=== PATIENT | female | born 1990 | race Caucasian/White ===

== ENCOUNTER 2019-11-15 05:48 | Day surgery (SDC) | payer BC ==
[2019-11-14 12:52] VITALS: BMI 29.2
--- NOTE | 2019-11-14 13:20 | HP ---
HISTORY OF PRESENT ILLNESS: Ms. Sully Russell is a 29-year-old, G0, P0, who presented to clinic with severe abnormal uterine bleeding, dysmenorrhea, and anemia. The patient underwent an ultrasound, which demonstrated an intracavitary fibroid measuring about 2.5 x 2 cm. The patient had undergone medical management without success and she is currently on Depo-Provera injections that have helped decrease the flow slightly. She is also on Lysteda and taking iron. The patient was counseled on her options for treatment and desired surgical management with hysteroscopic myomectomy as she has failed medical management. PAST MEDICAL HISTORY: Anemia. PAST SURGICAL HISTORY: 1. Left knee arthroscopy. 2. Right shoulder surgery. 3. Tonsillectomy. 4. Extraction of wisdom teeth. GYNECOLOGY HISTORY: She is G0. OB HISTORY AND GYNECOLOGY HISTORY: Pap smear is normal in 2018. No history of STDs. Currently on Depo-Provera. SOCIAL HISTORY: Denies any tobacco, alcohol, or drug use. OBJECTIVE: VITAL SIGNS: Stable. GENERAL: No acute distress. ABDOMEN: Soft, nontender to palpation. : Previous exam normal external genitalia. Normal-appearing vaginal cervical epithelium. Uterus nontender with slight enlargement. No adnexal masses or tenderness noted. LABORATORY DATA: Hemoglobin in September in 2019 was 8.3 and hematocrit was 26.4. Her repeat labs are pending. Transvaginal ultrasound, the uterus was 9.67 cm in length and 6.21 cm in width. The right and left ovary were normal. There is a 2.64 x 1.96 cm intracavitary fibroid. ASSESSMENT AND PLAN: Abnormal uterine bleeding with intracavitary fibroid and resulting anemia. -The patient had been counseled on treatment options and elected for surgical management with plans for hysteroscopic myomectomy. The patient understands that the procedure may require more than one attempt to completely remove the fibroid. She also understands the other risks, benefits, and alternatives, including the rare risk of requiring hysterectomy due to bleeding from the procedure. Job ID: [id number] [facility]
[2019-11-14 13:45] LABS: Hemoglobin 12.1 g/dL (12.0-16.0); Mean Corpuscular HGB CONC 32.2 g/dL (32.0-36.0); Mean Corpuscular Hemoglobin 29.4 pg (27.0-31.0); Mean Corpuscular Volume 91.2 fL (78.0-98.0); Mean Platelet Volume 9.4 fL (7.4-10.4); Platelet Count 263 thou/uL (130-400); RBC Distribution Width 20.4 % (11.5-14.5); Red Blood Cell (RBC) Count 4.13 mill/uL (4.20-5.40); White Blood Cell (WBC) Count 5.2 thou/uL (4.8-10.8)
[2019-11-14 14:01] LABS: BHCG - Serum Negative (NEGATIVE); Pregs Control Background? CLEAR/WHITE (CLR/WHITE); Pregs Control Bar Appear? YES (CONTROL BAR)
[2019-11-15] MEDS ORDERED: Fentanyl 100 MCG/2 ML VIAL ONE ×2 (06:37→11:54)
[2019-11-15] MEDS ORDERED: Tranexamic Acid 1,000 MG/10 ML VIAL ONE (07:04)
[2019-11-15] MEDS ORDERED: Acetaminophen 500 MG TAB ONE (07:04)
[2019-11-15] MEDS ORDERED: Famotidine/PF 20 mg/2ml Vial ONE (07:04)
[2019-11-15] MEDS ORDERED: Gabapentin 300 MG CAP ONE (07:04)
[2019-11-15] MEDS ORDERED: Sodium Chloride 0.9% 100 ML ONE (07:06)
[2019-11-15] MEDS ORDERED: Methylergonovine 0.2 MG/ML VIAL ONE (08:57)
[2019-11-15] MEDS ORDERED: Morphine 4 MG/ML VIAL ONE (10:18)
[2019-11-15] MEDS ORDERED: Morphine 2 MG/ML SYRINGE ONE (11:23)
[2019-11-15] MEDS ORDERED: Ondansetron PF 4 MG/2 ML Vial ONE (13:29)
[2019-11-15] MEDS ORDERED: PROPOFOL 200 MG/20 ML VIAL ONE (13:29)
[2019-11-15] MEDS ORDERED: Dexamethasone 20 MG/5 ML VIAL ONE (13:29)
[2019-11-15] MEDS ORDERED: Lidocaine 1% PF 5 ML VIAL ONE (13:29)
[2019-11-15] MEDS ORDERED: HYDROcodone/Acetaminophen 5/325 mg Tablet ONE (15:28)
--- NOTE | 2019-11-16 11:03 | OP ---
DATE OF PROCEDURE: 11/15/2019 PREOPERATIVE DIAGNOSES: 1. Abnormal uterine bleeding with a type 0 to 1 intracavitary fibroid. 2. Anemia. POSTOPERATIVE DIAGNOSES: 1. Abnormal uterine bleeding with a type 0 to 1 intracavitary fibroid. 2. Anemia. PROCEDURES PERFORMED: 1. Hysteroscopic partial myomectomy of the intracavitary fibroid using a TruClear hysteroscope device and incisor. 2. Insertion of an intrauterine Horne catheter balloon for uterine tamponade post procedure. SURGEON: Jayleen Parker DO ANESTHESIA: General. COMPLICATIONS: None. ESTIMATED BLOOD LOSS: 200 mL. HYSTEROSCOPIC FLUID DEFICIT: Calculated manually and approximately 450 mL. URINARY OUTPUT: 200 mL straight cath prior to procedure. INDICATIONS FOR THE PROCEDURE: Ms. Sully Russell is a 29-year-old, G0, who presented to clinic for followup after an episode of heavy vaginal bleeding and was found to have an intracavitary fibroid at anterior position, type 1. The patient had undergone medical management with Depo-Provera injection as well as underwent management with Lysteda and she continued to have bleeding and desired surgical management. She was counseled and a hysteroscopic myomectomy was recommended due to the location of the fibroid. DESCRIPTION OF PROCEDURE: The patient was brought to the operating room. She was placed under general anesthesia. She was then placed in dorsal lithotomy position using Elvin stirrups. She was prepped and draped in a sterile fashion. An official time-out was performed. She was given Ancef preoperatively for surgical prophylaxis. The patient was also given tranexamic acid and Cytotec preoperatively to help decrease bleeding associated with hysteroscopic myomectomy. At this point, a single-sided speculum was placed in the vagina. The anterior aspect of the cervix was grasped with a single-tooth tenaculum and the cervix was sequentially dilated using Parminder dilators. The uterus was sounded to approximately 9 cm. Initially, the 9 mm TruClear hysteroscope was then inserted into the endometrial cavity with good visualization. The dense tissue mini incisor was then inserted. This was then activated at the level of the tissue and due to the bleeding during this portion , the visualization became difficult after just minimal morcellation with a small incisor. At this point, several things were attempted with outflow as well as cleaning the scope. However, the visualization was still inadequate, therefore the TruClear was then advanced to the 8 mm scope and a dense tissue plus incisor was then inserted improving the visualization with more pressure to be applied to the intrauterine cavity and the incisor was activated and the majority of the fibroid was removed. There was superficial aspect of the bed still present. However, due to the incising, the clarity became difficult with bleeding from the fibroid. Therefore, the procedure was stopped. The TruClear also showed that there was a hysteroscopic fluid deficit of 1500, however, later was manually calculated and noted actually to be 450 mL. Therefore, the procedure has been concluded. When the hysteroscope was removed, bleeding was evaluated noting the patient did have brisk bleeding coming from the cervical canal from the uterus down through the cervix. Therefore, an intrauterine Horne catheter was then inserted with 40 mL of sterile water. The patient was also given Methergine 0.2 mg IM and Cytotec had been given preoperatively. With the insertion of the intrauterine Horne catheter, good hemostasis was achieved. The patient was monitored for approximately additional 20 minutes in the operating room and extubated when there was no additional heavy bleeding. The Horne catheter was then replaced as well for monitoring urine output in PACU. The patient was then extubated and transferred to the PACU. All counts were correct x2. There was no complications. The patient did have bleeding at the end of the procedure, which was quickly controlled with the Horne and tamponade inside the uterus as described above. Job ID: [id number] [facility]
== END 2019-11-15 16:46 | disposition home or self-care (01) ==
LOC: SDC 05:48
PROVIDERS: ATTEND Obstetrics & Gynecology
PROC: 0UB94ZZ Excision of Uterus, Percutaneous Endoscopic Approach (ICD-10-PCS; principal; 2019-11-15)
DX: D25.9 Leiomyoma of uterus, unspecified (principal); D64.9 Anemia, unspecified
CPT/HCPCS: 36415; 84703; 85027; 86850; 86900; 86901; 88305; J0690; J1100; J2001; J2210; J2270; J2405; J2704; J3010; J3490; S0028

== ENCOUNTER 2020-11-19 06:02 | Day surgery (SDC) | payer BC ==
[2020-11-15 12:55] VITALS: BMI 29.0
[2020-11-19] MEDS ORDERED: Gabapentin 300 MG CAP ONE (06:20)
[2020-11-19] MEDS ORDERED: Tranexamic Acid 1,000 MG/10 ML VIAL ONE (06:20)
[2020-11-19] MEDS ORDERED: CeleCOXIB 100 MG CAP ONE (06:20)
[2020-11-19] MEDS ORDERED: Sodium Chloride 0.9% 100 ML ONE (06:21)
[2020-11-19] MEDS ORDERED: Misoprostol 200 MCG TAB SL SCH ×2 (06:30→07:00)
[2020-11-19] MEDS ORDERED: Fentanyl 100 MCG/2 ML VIAL ONE ×2 (06:31→10:19)
[2020-11-19 06:37] LABS: #Basophils 0.1 thou/uL (0.0-0.2); #Eosinphils 0.2 thou/uL (0.0-0.7); #Lymphocytes 1.8 thou/uL (1.20-3.40); #Monocytes 0.5 thou/uL (0.11-0.59); #Neutrophils 3.5 thou/uL (1.40-6.50); %Basophils 1.7 % (0.0-1.0); %Eosinophils 3.7 % (0.0-10.0); %Lymphocytes 29.8 % (21.0-51.0); %Monocytes 8.1 % (0.0-10.0); %Neutrophils 56.8 % (42.0-75.0); Hemoglobin 12.1 g/dL (12.0-16.0); Mean Corpuscular HGB CONC 33.8 g/dL (32.0-36.0); Mean Corpuscular Hemoglobin 31.8 pg (27.0-31.0); Mean Corpuscular Volume 94.2 fL (78.0-98.0); Mean Platelet Volume 8.7 fL (7.4-10.4); Platelet Count 276 thou/uL (130-400); RBC Distribution Width 13.4 % (11.5-14.5); Red Blood Cell (RBC) Count 3.79 mill/uL (4.20-5.40); White Blood Cell (WBC) Count 6.1 thou/uL (4.8-10.8)
[2020-11-19 06:42] LABS: BHCG - Serum Negative (NEGATIVE); Pregs Control Background? CLEAR/WHITE (CLR/WHITE); Pregs Control Bar Appear? YES (CONTROL BAR)
[2020-11-19] MEDS ORDERED: Famotidine/PF 20 mg/2ml Vial ONE (07:06)
[2020-11-19] MEDS ORDERED: Midazolam HCl 2 mg/2 ml Vial ONE (07:06)
[2020-11-19] MEDS ORDERED: Meperidine HCl/PF 25 MG/ML VIAL ONE (09:25)
[2020-11-19] MEDS ORDERED: Ondansetron PF 4 MG/2 ML Vial ONE (10:52)
[2020-11-19] MEDS ORDERED: Lidocaine 1% PF 5 ML VIAL ONE (10:52)
[2020-11-19] MEDS ORDERED: PROPOFOL 200 MG/20 ML VIAL ONE (10:52)
[2020-11-19] MEDS ORDERED: HYDROcodone/Acetaminophen 5/325 mg Tablet ONE (11:28)
--- NOTE | 2020-11-19 17:40 | OP ---
DATE OF PROCEDURE: 11/19/2020 PREOPERATIVE DIAGNOSIS: Submucous fibroid. POSTOPERATIVE DIAGNOSIS: Submucous fibroid. PROCEDURE PERFORMED: Hysteroscopic myomectomy. ANESTHESIA: General LMA. [employer] CONTAINER INSPECTOR SURGEON: None. ESTIMATED BLOOD LOSS: 10 mL. COMPLICATIONS: None. DRAINS: None. PATHOLOGY: Submucous fibroid. FINDINGS: Normal-appearing cervix. Large intracavitary type 1 submucous fibroid, approximately 4 cm in diameter. Bilateral tubal ostia were visualized. Endometrium was secretory. Otherwise, no other intrauterine masses were noted. Fluid deficit for the case was 470 mL. DESCRIPTION OF PROCEDURE: The patient was taken to the operating room, where general anesthesia was obtained without difficulty. The patient was prepped and draped in a sterile fashion in the dorsal lithotomy position. A red rubber was used to catheterize the bladder. A speculum was placed in the vagina. The anterior lip of the cervix was grasped with single-tooth tenaculum. The cervix was then injected with 15 mL of dilute vasopressin of 20 units of vasopressin in 100 mL of injectable saline through a spinal needle to induce vasoconstriction. The cervix was then progressively dilated with Parminder dilators and the uterus then sounded to 8 cm. The Aveta hysteroscope was then introduced into the uterus and the large intracavitary fibroid was noted. Photodocumentation was performed, and then the large tissue shaver was used to begin resection of the fibroid. The tissue shaver was visible during the entire case and the tissue was sent for final pathology. There were times where fluid distention was released to allow the fibroid to prolapse more into the cavity in order to resect it entirely. At one point, visualization became more difficult secondary to the size of the fibroid and not having much room to work in. Therefore, pressure was increased from 60 to 70 mmHg. The tissue morcellation was carried out for approximately 1 hour. This took a prolonged amount of time secondary to the density of the tissue and the visualization of the tissue being morcellated as well as changing out the fluid system repeatedly. A total of 18 L of fluid was used through out this procedure and during the length of it, and normal saline was used as distention media. At one point, a smaller blade was used to see if this would be more effective on denser tissue as I got more toward the stalk of the fibroid and this was used for about 10 minutes and then switched back to the larger blade as it was felt this was more efficient. There was no excessive bleeding during the case, and visualization was good. Following the conclusion what was felt to get the majority of the fibroid to the base of it, the pictures were taken of the result following the procedure, and it appeared to be resected completely or almost completely. Secondary to not knowing the myometrial thickness behind the fibroid, it was felt that it was prudent to conclude the procedure before any inadvertent injury occurred if the myometrium was in fact thin area. The hysteroscope was then removed and sharp curette was used to the uterine wall to feel for any protrusion of tissue into the cavity, which it did not palpate to have any tissue masses present on any of the four quadrants. The fibroid projected off the anterior uterine wall. This tissue was also sent with the final pathology. All instruments were removed out of the vagina. The cervix was examined and noted to be hemostatic and there was no active bleeding from the cervical os at the conclusion of the procedure. The patient tolerated the procedure well. Sponge, lap, and needle counts correct x2. The patient was taken to recovery room in stable. Job ID: [id number]
== END 2020-11-19 11:35 | disposition home or self-care (01) ==
LOC: SDC 06:02
PROVIDERS: ATTEND Student in an Organized Health Care Education/Training Program
PROC: 0UB98ZZ Excision of Uterus, Via Natural or Artificial Opening Endoscopic (ICD-10-PCS; principal; 2020-11-19)
DX: D25.0 Submucous leiomyoma of uterus (principal); Z79.899 Other long term (current) drug therapy
CPT/HCPCS: 36415; 84703; 85025; 86850; 86900; 86901; 88305; J0690; J2175; J2250; J2405; J2704; J3010; J3490; S0028

== ENCOUNTER 2021-06-19 18:00 | Outpatient (CLI) | payer BC | END 2021-06-19 18:01 | disposition home or self-care (01) | LOC: SLEEPLAB 18:00 | PROVIDERS: ATTEND Family Medicine | DX: G47.33 Obstructive sleep apnea (adult) (pediatric) (principal); R53.83 Other fatigue; G31.84 Mild cognitive impairment of uncertain or unknown etiology; E66.9 Obesity, unspecified; F41.9 Anxiety disorder, unspecified; R06.83 Snoring; G47.00 Insomnia, unspecified; I10 Essential (primary) hypertension; Z68.29 Body mass index [BMI] 29.0-29.9, adult | CPT/HCPCS: 95806 ==

== ENCOUNTER 2021-07-17 19:30 | Outpatient (CLI) | payer BC | END 2021-07-17 19:31 | disposition home or self-care (01) | LOC: SLEEPLAB 19:30 | PROVIDERS: ATTEND Family Medicine | DX: G47.33 Obstructive sleep apnea (adult) (pediatric) (principal); G31.84 Mild cognitive impairment of uncertain or unknown etiology; F41.9 Anxiety disorder, unspecified; G47.00 Insomnia, unspecified; R06.83 Snoring; G47.10 Hypersomnia, unspecified; I10 Essential (primary) hypertension; E66.9 Obesity, unspecified; Z68.29 Body mass index [BMI] 29.0-29.9, adult | CPT/HCPCS: 95810 ==